=== PATIENT | female | born 1950 | race Caucasian/White ===

== ENCOUNTER 2025-03-31 14:04 | Outpatient (AMB) | payer MEDICARE, SELFPAY ==
--- NOTE | 2025-03-31 14:47 | AM.OFFWIN_ITS ---
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 Denies any fevers/chills or flank pain. Has taken some [id number] AZO with some minor relief Review of Systems Const All systems reviewed & are unremarkable except as noted in HPI and below Physical Exam Vital Signs: Last Vital Signs Temp 98.1 F 03/31/25 14:48 Pulse 84 03/31/25 14:48 BP 142/90 H 03/31/25 14:48 Pulse Ox 98 03/31/25 14:48 Oxygen Delivery Method Room Air 03/31/25 14:48 BMI result Body Mass Index 38.2 Const General: cooperative, healthy appearing, comfortable and no acute distress Resp Effort & Inspection: normal respiratory effort General: Yes bladder normal to palpation and Yes no CVA tenderness Bimanual exam- vagina & uterus: bladder normal to palpation Back/Spine/Pelvis Back: no CVA tenderness Skin General skin exam: no rashes or lesions noted Extrem General: Yes no clubbing, cyanosis or edema Psych Appearance: grossly normal Mental Status: mental status grossly normal Speech and movement: Normal speech and movement present Results AMB Urinalysis, Automated UA Leukoctes 500 Racheal/uL Last Edit by Michelle Quinones MA on 03/31/25 14:57 UA Nitrite Positive Last Edit by Michelle Quinones MA on 03/31/25 14:57 UA Urobilinogen 4 mg/dL Last Edit by Michelle Quinones MA on 03/31/25 14:57 UA Protein 0 mg/dL Last Edit by Michelle Quinones MA on 03/31/25 14:57 UA pH 5.5 Last Edit by Michelle Quinones MA on 03/31/25 14:57 UA Blood 0 Amor/uL Last Edit by Michelle Quinones MA on 03/31/25 14:57 UA Specific Mercedes 1.010 Last Edit by Michelle Quinones MA on 03/31/25 14:5 7 UA Ketone Positive Last Edit by Michelle Quinones MA on 03/31/25 14:57 UA Bilirubin 4 mg/dL Last Edit by Michelle Quinones MA on 03/31/25 14:57 UA Glucose 100 mg/dL Last Edit by Michelle Quinones MA on 03/31/25 14:57 Assessment & Plan Assessment & Plan (1) Acute cystitis: Code(s): N30.00 - Acute cystitis without hematuria Qualifiers: Hematuria presence: with hematuria Qualified Code(s): N30.01 - Acute cystitis with hematuria Plan: Will treat for UTI with antibiotics and also phenazopyridine for symptom management. We reviewed indications, use, possible side effects of these medications. Encouraged continued increased hydration. If she does not improve with treatment, or if symptoms worsen or fever/chills/flank pain develop, she can return to the walk-in or PCP for further evaluation. She verbalizes understanding and agrees to plan. Orders: Orders AMB Urinalysis Automated Today Dora Cain PA-C Z13.9 - Encounter for screening, unspecified Medications: New cefuroxime axetil 500 mg PO BID 10 tabs 0RF 5 days ELLA Vizcarra N30.01 - Acute cystitis with hematuria phenazopyridine 200 mg PO TID PRN 6 tabs 0RF pain 6 doses ELLA Vizcarra N30.01 - Acute cystitis with hematuria Coding Level of Care Code Est Pt Level 4 (29528) Diagnoses Acute cystitis with hematuria N30.01 Hematuria presence: with hematuria
[2025-03-31 14:48] VITALS: BP 142/90; PULSE 84; TEMP 36.7; O2SAT 98; BMI 38.2
== END 2025-03-31 14:59 | disposition home or self-care (01) ==
PROVIDERS: Visit Provider Nurse Practitioner Family
DX: Z13.9 Encounter for screening, unspecified (principal); N30.01 Acute cystitis with hematuria

== ENCOUNTER → 2025-03-31 14:04 | Outpatient (BNVA) | payer MEDICARE, SELFPAY | DX: N30.01 Acute cystitis with hematuria (principal) | CPT/HCPCS: 81003; 99212 ==

== ENCOUNTER 2025-04-15 13:07 | Outpatient (REF) | payer MEDICARE, SELFPAY | END 2025-04-15 13:08 | disposition home or self-care (01) | LOC: HO.LAB 13:07 | PROVIDERS: Physician Assistant | DX: N39.0 Urinary tract infection, site not specified (principal); Z13.89 Encounter for screening for other disorder | CPT/HCPCS: 81003; 87086; 99202 ==

== ENCOUNTER 2025-04-15 13:07 | Outpatient (AMB) | payer MEDICARE, SELFPAY ==
--- NOTE | 2025-04-15 13:30 | AM.OFFWIN_ITS ---
Intake Vital Signs 04/15/25 13:40 Height 5 ft 2 in Weight 208 lb BMI 38.0 BP 144/80 H Blood Pressure Location Rt brachial Position Sitting Pulse 98 Pulse Source Pulse Oximeter Temp 98.3 F Temp Source Oral Pulse Oximetry (%) 98 Oxygen Delivery Method Room Air Intake Visit Reasons: EP-uti Intake Note: presents with recurrent urine frequency, little urine output, right flank pain, minimal burning with voiding Allergies No Known Allergies Allergy (Verified 04/15/25 13:40) Do you need a note to return to daycare/school/sports/work: No HPI HPI Comments History of Present Illness Details History - The patient is a 75-year-old female pr esenting with symptoms suggestive of a urinary tract infection. - Experienced burning sensation and pain during urination with frequent urge to urinate two weeks ago, was treated 03/31 with 5 days of cefuroxime, felt better but then worse on day 6. - Symptoms improved with cefuroxime but recurred after completion of the antibiotic course. - Symptoms returned after constipation l asting four days. - No primary care physician, no regular medication use. Physical Exam General: Cooperative, healthy appearing, comfortable, no acute distress and well developed Orientation: Patient oriented x3 Limitations: No limitations Head: Normal to inspection Ears: Hearing grossly normal bilaterally Face and sinus: Normal facial exam Neck: Normal visual inspection and Yes full ROM Respiratory: Normal respiratory effort and able to speak in complete sentences. Skin: No rashes or lesions noted Neuro: Patient oriented x3 [facility] Medical History (Updated 04/15/25 @ 14:05 by Emeli Thompson PA-C) UTI (urinary tract infection) Review of Systems Const All systems reviewed & are unremarkable except as noted in HPI and below Physical Exam Vital Signs: Last Vital Signs Temp 98.3 F 04/15/25 13:40 Pulse 98 04/15/25 13:40 BP 144/80 H 04/15/25 13:40 Pulse Ox 98 04/15/25 13:40 Oxygen Delivery Method Room Air 04/15/25 13:40 BMI result Body Mass Index 38.0 Assessment & Plan Assessment & Plan (1) Complicated UTI (urinary tract infection): Code(s): N39.0 - Urinary tract infection, site not specified Plan: Plan Patient was informed and verbally consented to the use of an ambient scribe for clinic note documentation during this visit. Complicated Urinary Tract Infection (Uti) - VSS, pt well appearing - Initiate cefuroxime BID for 7 days as now complicated UTI, send urine culture. - Monitor symptoms, adjust treatment if necessary. Orders: Orders AMB Urinalysis Automated Today Z13.9 - Encounter for screening, unspecified Urine Culture Today N39.0 - Urinary tract infection, site not specified Medications: New cefuroxime axetil 500 mg PO Q12H 14 tabs 0RF Coding Level of Care Code New Pt Level 3 (26036) Diagnoses Complicated UTI (urinary tract infection) N39.0
[2025-04-15 13:40] VITALS: BP 144/80; PULSE 98; TEMP 36.8; O2SAT 98; BMI 38.0
== END 2025-04-15 14:20 | disposition home or self-care (01) ==
PROVIDERS: Visit Provider Physician Assistant
DX: N39.0 Urinary tract infection, site not specified (principal); Z13.9 Encounter for screening, unspecified